=== PATIENT | female | born 1945 | race Caucasian/White ===

== ENCOUNTER → 2017-08-14 | Outpatient (CLI) | payer OTHER | LOC: M.RAD 08-08 13:18 | DX: Z12.31 Encounter for screening mammogram for malignant neoplasm of breast (principal); M81.0 Age-related osteoporosis without current pathological fracture; M85.88 Other specified disorders of bone density and structure, other site; Z78.0 Asymptomatic menopausal state ==

== ENCOUNTER 2020-01-30 15:16 | Emergency (ER) | payer OTHER ==
[~2020-01-30] VITALS: Ht 157.5 cm; Wt 65.8 kg
[2020-01-30] MEDS ORDERED: METFORMIN HCL500 MG PO (15:30)
[2020-01-30] MEDS ORDERED: NOVOLOG FL100 UNIT/M SUBQ (15:48)
[2020-01-30] MEDS ORDERED: NORCO 5-325 TA1 EAC2 PO (16:38)
[2020-01-30] MEDS ORDERED: LIDODERM1 EACH TRANSDERM (16:38)
[2020-01-30 16:53] LABS: URINE BILIRUBIN NEGATIVE (Negative); URINE BLOOD NEGATIVE (Negative); URINE CLARITY CLEAR; URINE COLOR YELLOW; URINE GLUCOSE-RANDOM 1+ (Negative); URINE KETONES NEGATIVE (Negative); URINE LEUKOCYTES-REFLEX TRACE (Negative); URINE NITRITE-REFLEX NEGATIVE (Negative); URINE PROTEIN NEGATIVE (Negative); URINE UROBILINOGEN 0.2 E.U./dl (0.2-1.0)
[2020-01-30 17:00] LABS: BACTERIA-REFLEX 1-9 Few /HPF (None Seen); CASTS None Seen /LPF (None Seen); CRYSTALS None Seen /LPF (None Seen); SQUAMOUS 0-3 Few /LPF (0-3); URINE RBC 0-2 Rare /HPF (0-2); URINE WBC-REFLEX 0-5 Rare /HPF (0-5)
[2020-01-30 17:26] VITALS: BP 128/70
== END 2020-01-30 17:30 | disposition home or self-care (01) ==
LOC: M.ERS 15:16
PROVIDERS: Physician Assistant
DX: M54.5 Low back pain (principal); M54.6 Pain in thoracic spine; I10 Essential (primary) hypertension; E11.9 Type 2 diabetes mellitus without complications; Z90.710 Acquired absence of both cervix and uterus; Z79.4 Long term (current) use of insulin

== ENCOUNTER 2020-04-29 14:53 | Emergency (ER) | payer OTHER ==
[~2020-04-29] VITALS: Ht 157.5 cm; Wt 65.8 kg
[~2020-04-29 14:53] MED LIST: LIDODERM1 EACH TRANSDERM; METFORMIN HCL500 MG PO; NORCO 5-325 TA1 EAC2 PO; NOVOLOG FL100 UNIT/M SUBQ
[2020-04-29 15:23] LABS: ABSOLUTE BASOPHILS 0.1 thou/uL (0.0-0.2); ABSOLUTE EOSINOPHILS 0.2 thou/uL (0.0-0.7); ABSOLUTE LYMPHOCYTES 2.3 thou/uL (0.8-5.3); ABSOLUTE MONOCYTES 0.6 thou/uL (0.0-1.2); ABSOLUTE NEUTROPHILS 7.8 thou/uL (1.6-8.1); BASOPHILS 1.1 %; EOSINOPHILS 1.5 %; HEMOGLOBIN 14.2 gm/dL (12.0-15.0); MCH 30.4 pg (26.0-34.0); MCHC 34.6 g/dL (28.0-37.0); MONOCYTES 5.6 %; MPV 7.9 fl. (7.2-11.1); NUCLEATED RBCS 0 /100WBC; PLATELET COUNT* 216 thou/uL (150-400); POLYS 70.8 %; RBC 4.65 mil/uL (4.20-5.00); RDW-CV 12.7 % (10.5-14.5)
[2020-04-29 15:33] LABS: CALCIUM 8.6 mg/dL (8.5-10.1); CREATININE 0.9 mg/dL (0.6-1.3); POTASSIUM 4.2 mmol/L (3.5-5.1)
[2020-04-29 15:44] LABS: ALBUMIN 3.6 g/dL (3.4-5.0); TOTAL BILIRUBIN 0.4 mg/dL (<0.1-1.0); TOTAL PROTEIN 6.5 g/dL (6.4-8.2)
[2020-04-29] MEDS ORDERED: NORCO 5-325 TA1 EAC2 PO (17:11)
[2020-04-29 17:26] VITALS: BP 138/72
--- NOTE | 2020-04-30 10:15 | EKG ---
[place] [address] ELECTROCARDIOGRAM REPORT Name: JIMMY YOST Room: [facility]#: [id number] Admission: 04/29/20 Attend Phys: Discharge: 04/29/20 Date of : 45 Date of Service: 04/29/20 1513 Report #: [id number] THIS REPORT FOR: //name// [facility] ED Test Date: 2020-04-29 Test Time: 15:13:15 Pat Name: JIMMY YOST Department: Room: Gender: Launch Steward: [facility] : 1945 Requested By: Aydin Camarillo Order Number: [id number] MD: Billy Kwong Measurements Intervals [place] Rate: 53 P: 37 CA: 155 QRS: 2 QRSD: 93 T: 53 QT: 475 QTc: 446 Interpretive Statements Sinus bradycardia Borderline T wave abnormalities No previous ECG available for comparison Electronically Signed On 04-30-2020 10:14:59 CDT by Billy wKong [email or web address] <ELECTRONICALLY SIGNED> By: Billy Kwong MD, [facility] 04/30/20 1014 1513 1513 Billy Kwong MD, [facility] /EPI
== END 2020-04-29 17:25 | disposition home or self-care (01) ==
LOC: M.ERS 14:53
PROVIDERS: Emergency Medicine Emergency Medical Services
DX: M54.5 Low back pain (principal); M54.2 Cervicalgia; M79.601 Pain in right arm; I10 Essential (primary) hypertension; E11.9 Type 2 diabetes mellitus without complications; Z90.710 Acquired absence of both cervix and uterus; W01.0XXA Fall on same level from slipping, tripping and stumbling without subsequent striking against object, initial encounter; Y93.89 Activity, other specified; Y92.89 Other specified places as the place of occurrence of the external cause; Y99.8 Other external cause status

== ENCOUNTER 2020-04-30 08:06 | Observation (INO) | payer OTHER ==
[~2020-04-30] VITALS: Ht 157.5 cm; Wt 63.5 kg
[2020-04-30 08:08] VITALS: BP 148/83
[2020-04-30 09:11] LABS: ABSOLUTE EOSINOPHILS 0.1 thou/uL (0.0-0.7); ABSOLUTE LYMPHOCYTES 1.7 thou/uL (0.8-5.3); ABSOLUTE NEUTROPHILS 7.1 thou/uL (1.6-8.1); BASOPHILS 0.5 %; EOSINOPHILS 1.5 %; WBC 9.7 thou/uL (4.0-11.0)
[2020-04-30 09:13] LABS: ABSOLUTE MONOCYTES 0.7 thou/uL (0.0-1.2); HEMATOCRIT 40.1 % (37.0-47.0); HEMOGLOBIN 13.9 gm/dL (12.0-15.0); LYMPHOCYTES 17.4 %; MCH 30.5 pg (26.0-34.0); MCHC 34.8 g/dL (28.0-37.0); MCV 87.9 fL (80.0-100.0); MONOCYTES 7.7 %; MPV 7.5 fl. (7.2-11.1); NUCLEATED RBCS 0 /100WBC; PLATELET COUNT* 211 thou/uL (150-400); POLYS 72.9 %; RBC 4.56 mil/uL (4.20-5.00); RDW-CV 12.7 % (10.5-14.5)
[2020-04-30 09:20] LABS: CALCIUM 8.5 mg/dL (8.5-10.1); POTASSIUM 3.9 mmol/L (3.5-5.1)
[2020-04-30 09:24] LABS: ALBUMIN 3.6 g/dL (3.4-5.0); TOTAL BILIRUBIN 0.5 mg/dL (<0.1-1.0); TOTAL PROTEIN 6.4 g/dL (6.4-8.2)
--- NOTE | 2020-04-30 10:28 | EKG ---
[place] [address] ELECTROCARDIOGRAM REPORT Name: JIMMY YOST Room: [facility]#: [id number] Admission: 04/30/20 Attend Phys: Discharge: Date of : 45 Date of Service: 04/30/20 0843 Report #: [id number] THIS REPORT FOR: //name// [facility] ED Test Date: 2020-04-30 Test Time: 08:43:28 Pat Name: JIMMY YOST Department: Room: Gender: Courtesy Booth [facility]ier[facility] 1945 Requested By: Adyin Camarillo Order Number: [id number] MD: Billy Kwong Measurements Intervals [place] Rate: 56 P: 28 IA: 168 QRS: -3 QRSD: 83 T: 31 QT: 563 QTc: 544 Interpretive Statements Sinus bradycardia Probable left atrial enlargement Borderline abnrm T, anterolateral leads Prolonged QT interval Baseline wander in lead(s) II,III,aVF Electronically Signed On 04-30-2020 10:28:34 CDT by Billy Kwong [email or web address] <ELECTRONICALLY SIGNED> By: Billy Kwong MD, [facility] 04/30/20 1028 0843 0843 Billy Kwong MD, [facility] /EPI
[2020-04-30 11:44] LABS: URINE BILIRUBIN NEGATIVE (Negative); URINE BLOOD NEGATIVE (Negative); URINE CLARITY CLEAR; URINE COLOR YELLOW; URINE GLUCOSE-RANDOM 3+ (Negative); URINE KETONES NEGATIVE (Negative); URINE LEUKOCYTES-REFLEX 1+ (Negative); URINE PROTEIN NEGATIVE (Negative); URINE UROBILINOGEN 0.2 E.U./dl (0.2-1.0)
[2020-04-30 11:47] LABS: URINE NITRITE-REFLEX POSITIVE (Negative)
[2020-04-30 11:50] LABS: SQUAMOUS >10 Many /LPF (0-3)
[2020-04-30 11:51] LABS: BACTERIA-REFLEX >30 Many /HPF (None Seen); CASTS None Seen /LPF (None Seen); CRYSTALS None Seen /LPF (None Seen); MUCUS None Seen strn/LPF (None Seen); RENAL EPITHELIAL CELLS 0-3 Few /LPF (None Seen); URINE RBC None Seen /HPF (0-2); URINE WBC-REFLEX 6-15 Few /HPF (0-5); WBC CLUMPS Few (None Seen)
[2020-04-30 11:56] VITALS: BP 138/70
[2020-04-30 12:07] VITALS: BP 143/73
[2020-04-30 16:00] VITALS: BP 137/53
[2020-04-30 21:00] VITALS: BP 160/78
[2020-05-01 08:00] VITALS: BP 136/67
[2020-05-01 15:48] VITALS: BP 160/81
[2020-05-01 19:56] VITALS: BP 129/91
[2020-05-02 07:40] VITALS: BP 126/75
[2020-05-02] MEDS ORDERED: GLYBURIDE 5 MG T5 M1 PO (08:01)
[2020-05-02] MEDS ORDERED: KEFLEX500 M1 PO (08:01)
[2020-05-02] MEDS ORDERED: GLUCOPHAGE850 MG PO (08:01)
[2020-05-02 11:01] VITALS: BP 126/75
== END 2020-05-02 12:52 | disposition home or self-care (01) ==
LOC: M.ERS 08:06 → M.TBA-ER 10:30 → M.ORTHSURG 10:30
PROVIDERS: Emergency Medicine Emergency Medical Services; ADMIT Internal Medicine; ATTEND Internal Medicine
DX: N39.0 Urinary tract infection, site not specified (principal); B96.89 Other specified bacterial agents as the cause of diseases classified elsewhere; G92 Toxic encephalopathy; I10 Essential (primary) hypertension; E11.9 Type 2 diabetes mellitus without complications; S05.11XD Contusion of eyeball and orbital tissues, right eye, subsequent encounter; W19.XXXD Unspecified fall, subsequent encounter; Z79.899 Other long term (current) drug therapy; Z79.4 Long term (current) use of insulin; Z87.891 Personal history of nicotine dependence; Z20.828 Contact with and (suspected) exposure to other viral communicable diseases

== ENCOUNTER 2020-05-05 11:06 | Inpatient (IN) | payer OTHER ==
[~2020-05-05] VITALS: Ht 157.5 cm; Wt 67.5 kg
[~2020-05-05 11:06] MED LIST changes: +GLUCOPHAGE850 MG PO; +GLYBURIDE 5 MG T5 M1 PO; +KEFLEX500 M1 PO
[2020-05-05 11:12] VITALS: BP 104/71
[2020-05-05 11:28] LABS: ABSOLUTE BASOPHILS 0.1 thou/uL (0.0-0.2); ABSOLUTE EOSINOPHILS 0.1 thou/uL (0.0-0.7); ABSOLUTE LYMPHOCYTES 2.5 thou/uL (0.8-5.3); ABSOLUTE MONOCYTES 0.6 thou/uL (0.0-1.2); ABSOLUTE NEUTROPHILS 5.9 thou/uL (1.6-8.1); BASOPHILS 1.2 %; HEMATOCRIT 41.5 % (37.0-47.0); HEMOGLOBIN 14.3 gm/dL (12.0-15.0); LYMPHOCYTES 26.7 %; MCH 30.5 pg (26.0-34.0); MCHC 34.4 g/dL (28.0-37.0); MCV 88.5 fL (80.0-100.0); MONOCYTES 6.7 %; MPV 7.4 fl. (7.2-11.1); NUCLEATED RBCS 0 /100WBC; PLATELET COUNT* 236 thou/uL (150-400); POLYS 64.4 %; RBC 4.69 mil/uL (4.20-5.00); WBC 9.2 thou/uL (4.0-11.0)
[2020-05-05 11:37] LABS: APTT 23.4 Seconds (25.0-31.3); INR 1.1
[2020-05-05 11:51] LABS: CALCIUM 8.7 mg/dL (8.5-10.1); POTASSIUM 4.3 mmol/L (3.5-5.1)
[2020-05-05 11:56] LABS: ALBUMIN 3.7 g/dL (3.4-5.0); TOTAL BILIRUBIN 0.6 mg/dL (<0.1-1.0); TOTAL PROTEIN 6.5 g/dL (6.4-8.2)
[2020-05-05 14:51] LABS: URINE BILIRUBIN NEGATIVE (Negative); URINE BLOOD NEGATIVE (Negative); URINE CLARITY CLEAR; URINE COLOR YELLOW; URINE GLUCOSE-RANDOM NEGATIVE (Negative); URINE KETONES NEGATIVE (Negative); URINE LEUKOCYTES-REFLEX NEGATIVE (Negative); URINE NITRITE-REFLEX NEGATIVE (Negative); URINE PROTEIN NEGATIVE (Negative); URINE UROBILINOGEN 0.2 E.U./dl (0.2-1.0)
[2020-05-05 16:15] VITALS: BP 110/64
[2020-05-05 16:30] VITALS: BP 108/59
--- NOTE | 2020-05-05 17:49 | EKG ---
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 : 1945 Requested By: Nish Levine Order Number: [id number] MD: Newton Albert Measurements Intervals [place] Rate: 58 P: 47 WV: 163 QRS: 3 QRSD: 90 T: 18 QT: 525 QTc: 516 Interpretive Statements Sinus rhythm Borderline T wave abnormalities Prolonged QT interval Compared to ECG 04/30/2020 08:43:28 T-wave abnormality now present Sinus bradycardia no longer present Electronically Signed On 05-05-2020 17:49:16 CDT by Newton Albert [email or web address] <ELECTRONICALLY SIGNED> By: Newton Albert MD, [facility]ACC 05/05/20 1749 1110 1110 Newton Albert MD, [facility] /EPI
--- NOTE | 2020-05-05 19:46 | NUR ---
PATIENT ARRIVED FROM ER THIS EVENING. PATIENT SETTLED TO ROOM AND HISTORY, ASSESSMENT AND VITALS COMPLETED AND DOCUMENTED. PATIENT HAS BEEN CALM AND COOPERATIVE SINCE ARRIVAL. PATIENT HAD BEEN A FLIGHT RISK IN THE ER. PATIENT HAS SITTER AT DOOR AT THIS TIME. BED ALARM ON. PATIENT DENIES ANY NEEDS AT THIS TIME. CALL LIGHT WITHIN REACH.
[2020-05-05 20:00] VITALS: BP 122/53
--- NOTE | 2020-05-06 07:53 | NUR ---
Oriented x 3 and cooperative. She may be alittle forgetful but answers questions appropriately. She is up with stand by assist to the bedside commode. Blood sugar this am 153 message sent to MD for home meds to be ordered.
[2020-05-06 08:10] VITALS: BP 114/69
[2020-05-06 12:52] LABS: CALCIUM 9.1 mg/dL (8.5-10.1); CREATININE 0.9 mg/dL (0.6-1.3); MAGNESIUM 1.8 mg/dL (1.8-2.4); PHOSPHORUS* 4.2 mg/dL (2.5-4.9); POTASSIUM 4.4 mmol/L (3.5-5.1)
--- NOTE | 2020-05-06 14:00 | NUR ---
LONG CONVERATION WITH PT. SHE MOSTLY SPOKE OF . SHE SAID HE CAN GET UP AMD MAKE A SANDWICH FOR HIMSELF. HE ALSO WALKS TO THE BR WITH CANE. DOES NOT MENTION HE IS INCONTINENT AND HAS TO CLEAN HIM UP. SHE AGREES SHE HAS BEEN FALLING FREQUENTLY BUT DOESN'T KNOW WHY. SHE WORKED WITH P.T. TODAY AND WAS SBA FOR AMBULATING AND WALKING UP 6 STAIRS. SHE SAYS HER 2 BOYS COME AFTER WORK AND HELP HER AND . THERE IS A BEDROOM DOWNSTAIRS THAT THEY SLEEP IN OVERNIGHT. PT.AND ON CJ CAREs PROGRAM THROUGH [facility]. CM SPOKE WITH AYLEEN/[employer]. HE SAID THEY HAVE TO GO OVER FREQUENTLY TO HELP PT.OR UP WHEN THEY HAVE FALLEN. IN HIS OPINION THEY SHOULD NOT BE LIVING ALONE. HE SAID ALL OF THE TIMES THEY HAVE BEEN THERE, HE HAS NOT SEEN THEIR SONS. PT.IS ALERT AND SEEMS ORIENTED. DESTINY ALSO SPOKE WITH JOCELYNE QUICK/[facility] [phone]. SHE HAS HAD SEVERAL HOT LINE CALLS ABOUT THE COUPLE. SHE SAID SONS SEEM AGREEABLE AND HELPFUL WHEN YOU SPEAK WITH THEM BUT THEY NEVER FOLLOW THROUGH ON WHAT THEY SAY THEY WILL DO. PT.AGREEABLE WITH SNF FOR . SHE SAID THAT SHE WANTS TO BRING HIM HOME WITH HER AFTER HIS SKILLED STAY. SHE WOULD WANT HIM CLOSE IF POSSIBLE. EXPLAINED PTS CANNOT HAVE VISITROS IN CARE FACILITIES DURING THE PANDEMIC. DESTINY WILL CALL SONS,KAREN AND YIFAN TO DISCUSS PARENTS WITH THEM, WELL.
[2020-05-06 16:46] VITALS: BP 138/71
[2020-05-06 16:51] VITALS: BP 136/73
--- NOTE | 2020-05-06 19:13 | NUR ---
PATIENT RESTING IN BED. PATIENT HAS BEEN CALM AND COOPERATIVE TODAY. PATIENT DENIES ANY PAIN. PATIENT HAS GOOD APPETITE. PRATIBHA WORKED WITH PHYSICAL THERAPY THIS AFTERNOON. PATIENT DENIES ANY NEEDS AT THIS TIME. CALL LIGHT WITHIN REACH.
[2020-05-06 20:00] VITALS: BP 119/81
[2020-05-07 04:14] LABS: HEMATOCRIT 40.7 % (37.0-47.0); HEMOGLOBIN 13.9 gm/dL (12.0-15.0); MCH 30.5 pg (26.0-34.0); MCHC 34.1 g/dL (28.0-37.0); MCV 89.4 fL (80.0-100.0); MPV 7.9 fl. (7.2-11.1); RBC 4.55 mil/uL (4.20-5.00); RDW-CV 12.6 % (10.5-14.5); WBC 10.2 thou/uL (4.0-11.0)
[2020-05-07 04:38] LABS: CALCIUM 9.1 mg/dL (8.5-10.1); MAGNESIUM 1.8 mg/dL (1.8-2.4); POTASSIUM 3.9 mmol/L (3.5-5.1)
--- NOTE | 2020-05-07 06:49 | NUR ---
Alert and oriented x 4 but forgetful. Vitals are stable. She has had pain meds x 2 for lumbar back pain and rt shoulder pain. She had a shower last evening. This am MG+ was low and dose was given. She has slept well.
[2020-05-07 08:00] VITALS: BP 115/82
--- NOTE | 2020-05-07 15:06 | NUR ---
Pt wants to return home at dc. Pt walked 130ft with PT, OT is going to continue to assess. If Pt dc over the weekend with HH, arrange through [facility] p:[phone] f:[phone].
[2020-05-07 16:00] VITALS: BP 133/76
--- NOTE | 2020-05-07 18:13 | NUR ---
PT. AOX4, VSS, STATES PAIN TO R HIP AND HEAD BUT REFUSES PAIN MEDS. CALL LIGHT AND PERSONAL BELONGINGS PLACED WITHIN REACH. SPOKE TO SON YIFAN AND DISCUSSED PLAN FOR DC TOMORROW. PT. IN BED, WATCHING TV, IN NO APPARENT DISTRESS AT THIS TIME.
[2020-05-07 21:00] VITALS: BP 148/85
[2020-05-08 08:45] VITALS: BP 119/70
[2020-05-08 15:43] VITALS: BP 133/87
--- NOTE | 2020-05-08 18:31 | NUR ---
PATIENT RESTING IN BED. PATIENT IS UP STANDBY ASSIST WITH WALKER. PATIENT HAS GOOD APPETITE. PATIENT HAS PAIN TO RIGHT HIP, WELL CONTROLLED WITH LIDOCAINE PATCH. PATIENT DENIES ANY NEEDS AT THIS TIME. CALL LIGHT WITHIN REACH.
[2020-05-08 20:00] VITALS: BP 129/87
--- NOTE | 2020-05-09 04:14 | NUR ---
PATIENT ALERT/ORIENTED X4; FORGETFUL. PT WITH SALINE LOCK IN LT FOREARM. PT WITH NUMEROUS BRUISES FROM FALLS AT HOME. PT USES CALL LIGHT APPROPRIATELY FOR ASSISTANCE TO BSC. PT DENIES NEEDS AT THIS TIME. FREQUENTLY USED ITEMS AND CALL LIGHT WITHIN REACH. SIDERAILS UPX3 AND BED ALARM ON. WILL CONTINUE TO MONITOR.
[2020-05-09 04:47] LABS: HEMATOCRIT 43.3 % (37.0-47.0); HEMOGLOBIN 14.5 gm/dL (12.0-15.0); MCH 29.9 pg (26.0-34.0); MCHC 33.5 g/dL (28.0-37.0); MCV 89.1 fL (80.0-100.0); MPV 7.9 fl. (7.2-11.1); RBC 4.87 mil/uL (4.20-5.00); RDW-CV 12.8 % (10.5-14.5); WBC 12.7 thou/uL (4.0-11.0)
[2020-05-09 05:10] LABS: ALBUMIN 3.7 g/dL (3.4-5.0); CALCIUM 8.9 mg/dL (8.5-10.1); MAGNESIUM 1.8 mg/dL (1.8-2.4); POTASSIUM 3.9 mmol/L (3.5-5.1); TOTAL BILIRUBIN 0.6 mg/dL (<0.1-1.0); TOTAL PROTEIN 6.9 g/dL (6.4-8.2)
[2020-05-09 08:10] VITALS: BP 116/79
[2020-05-09] MEDS ORDERED: CEPHALEXIN 250250 M1 PO (11:07)
[2020-05-09] MEDS ORDERED: BUSPIRONE HCL5 MG PO (11:08)
[2020-05-09] MEDS ORDERED: ULTRA-LIGHT RO1 EACH (11:12)
[2020-05-09 11:35] VITALS: BP 116/79
--- NOTE | 2020-05-09 14:15 | NUR ---
PATIENT DISCHARGED TO HOME WITH HOME HEALTH. DISCHARGE PAPERS REVIEWED AND SIGNED. PRESCRIPTIONS AND INFORMATION SHEETS GIVEN. IV REMOVED. PATIENT DENIES ANY FURTHER NEEDS. PATIENT TAKEN AMBULATORY TO EXIT. LEFT WITH SON.
[2020-05-09 14:42] VITALS: BP 116/79
== END 2020-05-09 14:15 | disposition home health service (06) | DRG 91 ==
LOC: M.ERS 11:06 → M.ORTHSURG 13:53 → M.TBA-ER 13:53 → M.ORTHSURG 16:33
PROVIDERS: Family Medicine; ADMIT Family Medicine; ATTEND Family Medicine
DX: G92 Toxic encephalopathy (principal); J96.01 Acute respiratory failure with hypoxia; N39.0 Urinary tract infection, site not specified; S00.11XA Contusion of right eyelid and periocular area, initial encounter; F03.90 Unspecified dementia, unspecified severity, without behavioral disturbance, psychotic disturbance, mood disturbance, and anxiety; E83.42 Hypomagnesemia; W19.XXXA Unspecified fall, initial encounter; B96.89 Other specified bacterial agents as the cause of diseases classified elsewhere; E11.9 Type 2 diabetes mellitus without complications; R53.1 Weakness; E66.9 Obesity, unspecified; I10 Essential (primary) hypertension; Z20.828 Contact with and (suspected) exposure to other viral communicable diseases; Z68.27 Body mass index [BMI] 27.0-27.9, adult; Z79.84 Long term (current) use of oral hypoglycemic drugs; Z90.710 Acquired absence of both cervix and uterus; Z79.899 Other long term (current) drug therapy; Y93.89 Activity, other specified; Y92.89 Other specified places as the place of occurrence of the external cause; Y99.8 Other external cause status; Z91.19 Patient's noncompliance with other medical treatment and regimen